=== PATIENT | female | born 1945 | race Caucasian/White ===

== ENCOUNTER 2019-11-14 09:51 | Inpatient (IN) ==
[2019-11-14] MEDS ORDERED: diazePAM 5 MG TABLET PO PRN (18:04)
[2019-11-14] MEDS ORDERED: Ondansetron ODT 4 MG TAB.RAPDIS PO PRN (18:04)
[2019-11-14] MEDS ORDERED: Dextrose Gel 15 GM/37.5 ML TUBE PO PRN ×2 (18:11)
[2019-11-14] MEDS ORDERED: D5% in Water 1,000 ML IVC PRN (18:11)
[2019-11-14] MEDS ORDERED: [UNRECOGNIZED DRUG - OTHER] IV SCH (21:00)
[2019-11-14] MEDS ORDERED: VANCOMYCIN HCL IV SCH (21:00)
[2019-11-14] MEDS ORDERED: DEXTROSE 5% IV SCH (21:00)
[2019-11-14] MEDS ORDERED: Aspirin Enteric Coated 81 MG Tablet PO ONE (21:30)
[2019-11-14] MEDS: levoFLOXacin 500 MG TABLET PO SCH (21:35)
[2019-11-14] MEDS: Nitroglycerin 0.4 MG TAB.SUBL SL PRN ×3 (21:40→22:25)
[2019-11-14] MEDS: *HR* OxyCODONE/APAP 10/325 TABLET PO PRN (21:54)
[2019-11-14] MEDS: Insulin LISPRO 300 UNITS/3 ML VIAL SQ SCH (21:55)
[2019-11-15] MEDS: *HR* Enoxaparin 30 MG/0.3 ML SYRINGE SQ SCH (05:40)
[2019-11-15 06:10] LABS: Basophils % 0.1 %; Eosinophils % 0.2 %; Hematocrit 24.7 % (35.3-44.9); Hemoglobin 7.8 g/dL (11.5-15.4); Immature Granulocytes % 0.5 % (0-4); Lymphocytes # 0.8 K/mcL (0.6-4.6); Mean Corpuscular HGB Conc 31.6 g/dL (31.6-35.5); Mean Corpuscular Hemoglobin 29.2 pg (28.0-33.3); Mean Corpuscular Volume 92.5 fL (83.0-100.0); Mean Platelet Volume 10.1 fL (9.4-12.4); Monocytes # 1.1 K/mcL (0.0-1.3); Monocytes % 8.2 %; Neutrophils # 10.9 K/mcL (1.6-8.9); Platelet Count 274 K/mcL (140-400); Red Blood Count 2.67 M/mcL (3.82-4.97); Red Cell Distribution Width 20.1 % (11.5-14.5); White Blood Count 12.8 K/mcL (4.3-11.1)
[2019-11-15 06:22] LABS: BUN/Creatinine Ratio 10 (6-26); Blood Urea Nitrogen 7 mg/dL (8-23); Calcium 7.5 mg/dL (8.6-10.3); Carbon Dioxide 32 mEq/L (23-29); Chloride 96 mEq/L (98-107); Glucose 170 mg/dL (70-105); Magnesium 1.5 mg/dL (1.6-2.6); Osmolality,Calculated 282 (280-300); Phosphorous 2.9 mg/dL (2.7-4.5); Potassium 3.1 mEq/L (3.5-5.1); Sodium 135 mEq/L (136-145); eGFR For African Americans > 60 (> 60); eGFR For Non-African Americans > 60 (> 60)
[2019-11-15] MEDS ORDERED: Insulin DETEMIR 100 UNIT/ML X5UNITS SQ SCH ×2 (09:00→18:00)
[2019-11-15] MEDS: Insulin LISPRO 300 UNITS/3 ML VIAL SQ SCH ×4 (09:17→20:36)
[2019-11-15] MEDS: amLODIPine 5 MG TABLET PO SCH (09:20)
[2019-11-15] MEDS: BuPROPion XL (24 HR) 150 MG TABLET PO SCH (09:21)
[2019-11-15] MEDS: Fluconazole 100 MG TABLET PO SCH (09:21)
[2019-11-15] MEDS: Furosemide 40 MG TABLET PO SCH (09:22)
[2019-11-15] MEDS: Insulin DETEMIR 100 UNIT/ML X5UNITS SQ SCH ×2 (10:53→21:14)
[2019-11-15] MEDS: levoFLOXacin 500 MG TABLET PO SCH (17:39)
[2019-11-15] MEDS: *HR* OxyCODONE/APAP 10/325 TABLET PO PRN (18:23)
[2019-11-16] MEDS: *HR* Dextrose 50 % in Water (Syg) 50 ML SYRINGE IVP PRN ×2 (02:24→07:00)
[2019-11-16] MEDS: *HR* Enoxaparin 30 MG/0.3 ML SYRINGE SQ SCH (05:37)
[2019-11-16 05:39] LABS: Basophils % 0.2 %; Eosinophils % 0.3 %; Hematocrit 24.5 % (35.3-44.9); Hemoglobin 7.7 g/dL (11.5-15.4); Immature Granulocytes % 0.6 % (0-4); Lymphocytes # 0.6 K/mcL (0.6-4.6); Lymphocytes % 4.6 %; Mean Corpuscular HGB Conc 31.4 g/dL (31.6-35.5); Mean Corpuscular Hemoglobin 29.6 pg (28.0-33.3); Mean Corpuscular Volume 94.2 fL (83.0-100.0); Mean Platelet Volume 10.1 fL (9.4-12.4); Monocytes # 1.2 K/mcL (0.0-1.3); Monocytes % 9.1 %; Neutrophils # 11.2 K/mcL (1.6-8.9); Platelet Count 246 K/mcL (140-400); Red Cell Distribution Width 19.9 % (11.5-14.5); Segmented Neutrophils % 85.2 %; White Blood Count 13.1 K/mcL (4.3-11.1)
[2019-11-16 06:00] LABS: BUN/Creatinine Ratio 13 (6-26); Blood Urea Nitrogen 12 mg/dL (8-23); Calcium 7.6 mg/dL (8.6-10.3); Carbon Dioxide 35 mEq/L (23-29); Chloride 99 mEq/L (98-107); Glucose 58 mg/dL (70-105); Osmolality,Calculated 284 (280-300); Potassium 3.5 mEq/L (3.5-5.1); Sodium 138 mEq/L (136-145); eGFR For African Americans > 60 (> 60); eGFR For Non-African Americans 58 (> 60)
[2019-11-16] MEDS: Insulin LISPRO 300 UNITS/3 ML VIAL SQ SCH ×4 (07:38→20:27)
[2019-11-16] MEDS: Insulin DETEMIR 100 UNIT/ML X5UNITS SQ SCH (07:44)
[2019-11-16] MEDS: amLODIPine 5 MG TABLET PO SCH (08:06)
[2019-11-16] MEDS: Fluconazole 100 MG TABLET PO SCH (08:07)
[2019-11-16] MEDS: Furosemide 40 MG TABLET PO SCH (08:07)
[2019-11-16] MEDS: BuPROPion XL (24 HR) 150 MG TABLET PO SCH (10:50)
[2019-11-16] MEDS ORDERED: *HR* Dextrose 50 % in Water (Vial) 50 ML VIAL IVP PRN (13:30)
[2019-11-16 16:01] LABS: Bilirubin,Urine Negative (Negative); Blood,Urine Negative (Negative); Clarity,Urine Clear (Clear); Color,Urine Yellow (Yellow); Glucose,Urine (UA) Normal (Normal); Ketones,Urine Negative (Negative); Leukocyte Esterase,Urine Negative (Negative); Nitrite,Urine Negative (Negative); PH,Urine 5.5 pH Units (5.0-8.0); Protein,Urine Trace mg/dL (Neg-Trace); Urobilinogen,Urine Normal (Normal)
[2019-11-16] MEDS: levoFLOXacin 500 MG TABLET PO SCH (18:11)
[2019-11-16] MEDS: *HR* OxyCODONE/APAP 10/325 TABLET PO PRN (20:27)
[2019-11-16] MEDS ORDERED: Insulin DETEMIR 100 UNIT/ML X5UNITS SQ SCH (21:00)
[2019-11-16] MEDS ORDERED: Vancomycin 1 EACH in 0.9 % Sodium Chloride 250 ML IVPB SCH (22:00)
[2019-11-17] MEDS: *HR* OxyCODONE/APAP 10/325 TABLET PO PRN (05:06)
[2019-11-17] MEDS: *HR* Enoxaparin 30 MG/0.3 ML SYRINGE SQ SCH (05:06)
[2019-11-17 08:05] LABS: Basophils % 0.1 %; Eosinophils # 0.1 K/mcL (0.0-0.6); Eosinophils % 1.1 %; Hematocrit 22.6 % (35.3-44.9); Hemoglobin 7.2 g/dL (11.5-15.4); Immature Granulocytes % 0.4 % (0-4); Lymphocytes # 0.6 K/mcL (0.6-4.6); Lymphocytes % 7.4 %; Mean Corpuscular HGB Conc 31.9 g/dL (31.6-35.5); Mean Corpuscular Hemoglobin 29.8 pg (28.0-33.3); Mean Corpuscular Volume 93.4 fL (83.0-100.0); Mean Platelet Volume 10.3 fL (9.4-12.4); Monocytes % 13.9 %; Neutrophils # 5.8 K/mcL (1.6-8.9); Platelet Count 225 K/mcL (140-400); Red Blood Count 2.42 M/mcL (3.82-4.97); Red Cell Distribution Width 19.7 % (11.5-14.5); Segmented Neutrophils % 77.1 %; White Blood Count 7.5 K/mcL (4.3-11.1)
[2019-11-17 08:17] LABS: Anisocytosis 1+ (Not Present); Hypochromasia Present (Not Present); Macrocytosis Present (Not Present); Microcytosis Present (Not Present); Platelet Estimate Normal (Normal)
[2019-11-17 08:28] LABS: Calcium 7.5 mg/dL (8.6-10.3)
[2019-11-17] MEDS: Insulin LISPRO 300 UNITS/3 ML VIAL SQ SCH ×2 (08:39→14:15)
[2019-11-17] MEDS: amLODIPine 5 MG TABLET PO SCH (08:51)
[2019-11-17] MEDS: Fluconazole 100 MG TABLET PO SCH (08:52)
[2019-11-17] MEDS: Furosemide 40 MG TABLET PO SCH (08:53)
[2019-11-17] MEDS: BuPROPion XL (24 HR) 150 MG TABLET PO SCH (09:32)
[2019-11-17] MEDS ORDERED: 0.9 % Sodium Chloride 250 ML IVC SCH (10:15)
[2019-11-17] MEDS ORDERED: Ondansetron 4 MG/2 ML VIAL IVP PRN (11:07)
[2019-11-17] MEDS ORDERED: Isovue-370 500 ML BOTTLE PO ONE (12:07)
[2019-11-17 14:24] VITALS: BP 154/70
[2019-11-17] MEDS ORDERED: 0.9 % Sodium Chloride 1,000 ML ONE (15:38)
[2019-11-18] MEDS ORDERED: *HR* Enoxaparin 40 MG/0.4 ML SYRINGE SQ SCH (06:00)
== END 2019-11-17 16:00 | disposition short-term general hospital (02) | DRG 945 ==
LOC: INPGRE 15:05
PROVIDERS: ADMIT Family Medicine; ATTEND Family Medicine